=== PATIENT | female | born 1945 | race Caucasian/White ===

== ENCOUNTER 2018-05-28 05:00 | Day surgery (SDC) | payer OTHER ==
[~2018-05-28 05:00] MED LIST: ASA81 MG PO; CALCIUM + D3 E1 EACH PO; GABAPENTIN100 MG PO; METFORMIN HCL500 MG PO; OMEPRAZOLE20 M1 PO; SIMVASTATIN20 MG PO
== END 2018-05-28 13:25 | disposition home or self-care (01) ==
LOC: CIR.AMB 05:00
DX: D12.9 Benign neoplasm of anus and anal canal (principal); D12.8 Benign neoplasm of rectum; Z86.010 Personal history of colon polyps